=== PATIENT | female | born 1935 | race Caucasian/White ===

== ENCOUNTER → 2018-01-03 | Outpatient (CLI) | payer MEDICARE, OTHER ==
[~2018-01-03] MED LIST: ACYC800 PO; CHOL10002; FISH1000; HYDACE5 PO; LEVSOD100 PO; LEVSOD75 PO; Multiple Vitam1 EAC1 PO; NAPR220 PO; Pravastatin Sod40 MG PO; RXHYDACE PO
[2018-01-03 11:04] LABS: BASOPHILS ABSOLUTE AUTO 0.03 K/mm3 (0.00-0.23); BASOPHILS PERCENT AUTO 1 % (0-2); EOSINOPHILS ABSOLUTE AUTO 0.16 K/mm3 (0.00-0.68); EOSINOPHILS PERCENT AUTO 3 % (0-6); Hematocrit 35.2 % (33.0-51.0); Hemoglobin 11.6 g/dL (11.5-16.0); IMMATURE GRAN ABSOLUTE AUTO 0.01 K/mm3 (0.00-0.10); IMMATURE GRAN PERCENT AUTO 0 % (0-1); LYMPHOCYTES ABSOLUTE AUTO 1.32 K/mm3 (0.84-5.20); LYMPHOCYTES PERCENT AUTO 27 % (21-46); MONOCYTES ABSOLUTE AUTO 0.44 K/mm3 (0.16-1.47); MONOCYTES PERCENT AUTO 9 % (4-13); Mean Corpuscular HGB 28.6 pg (26.0-34.0); Mean Corpuscular Volume 87 fL (80-100); Mean Platelet Volume 11.1 fL (9.1-12.4); NEUTROPHILS ABSOLUTE AUTO 3.03 K/mm3 (1.96-9.15); NEUTROPHILS PERCENT AUTO 61 % (41-73); Platelet Count 158 K/mm3 (150-400); RDW Coefficient Variation 13.7 % (11.7-14.2); RDW Standard Deviation 43.5 fL (35.1-46.3); Red Blood Cell Count 4.05 M/mm3 (3.80-5.20); White Blood Cell Count 4.99 K/mm3 (4.00-11.30)
[2018-01-03 11:24] LABS: Alanine Aminotransfer (ALT/SGP 24 U/L (12-78); Albumin, Blood 3.3 g/dL (3.4-5.0); Albumin/Globulin Ratio 0.8 (0.8-1.8); Alk Phos 90 U/L (40-126); Anion Gap 8 mmol/L (6-16); Aspartate Aminotrans (AST/SGOT 14 U/L (12-37); Bilirubin, Total 0.6 mg/dL (0.1-1.0); Blood Urea Nitrogen 13 mg/dL (8-24); Bun/Creatinine Ratio 15.1 (12.0-20.0); CO2, Blood 29 mmol/L (21-32); CPK Creatine Kinase 107 U/L (26-192); Calcium, Blood 9.2 mg/dL (8.5-10.1); Chloride, Blood 106 mmol/L (98-108); Creatinine, Blood 0.86 mg/dL (0.40-1.00); Globulin, Blood 4.2 g/dL (2.2-4.0); Glomerular Filtration Rate >60 (60-); Glucose, Blood 149 mg/dL (70-99); Potassium, Blood 3.5 mmol/L (3.5-5.5); Sodium, Blood 143 mmol/L (136-145); Thyroid Stimulating Hormone 3.124 uIU/mL (0.360-4.800); Total Protein, Blood 7.5 g/dL (6.4-8.2)
[2018-01-03 11:25] LABS: Troponin I <0.017 ng/mL (0.000-0.040)
== END | disposition home or self-care (01) ==
LOC: LAB SHORT 11:00 → LAB EV 11:00
PROVIDERS: General Practice
DX: I50.9 Heart failure, unspecified (principal)
CPT/HCPCS: 80053; 82550; 83880; 84443; 84484; 85025

== ENCOUNTER → 2020-11-06 | Outpatient (CLI) | payer MEDICARE, OTHER ==
[~2020-11-06] MED LIST changes: +AMLO5 PO; +ATOR80 PO; +Acetaminophen325 M1 PO; +Aspirin EC81 MG PO; +CARV25 PO; +FURO20 PO; +LOSA25 PO; +Nitrostat0.3 MG SL; +POTA10T PO; -Pravastatin Sod40 MG PO; +Prinivil10 MG PO; +SPIR25 PO
== END | disposition home or self-care (01) ==
LOC: LAB SHORT 16:20
DX: N39.0 Urinary tract infection, site not specified (principal)
CPT/HCPCS: 87077; 87086; 87186

== ENCOUNTER → 2021-01-11 | Outpatient (CLI) | payer MEDICARE, OTHER | END | disposition home or self-care (01) | LOC: LAB 13:40 → LAB SHORT 13:40 | DX: R30.9 Painful micturition, unspecified (principal) | CPT/HCPCS: 87077; 87086; 87186 ==

== ENCOUNTER 2021-04-03 07:07 | Inpatient (IN) | payer MEDICARE, OTHER ==
[~2021-04-03] VITALS: Ht 160 cm; Wt 93.2 kg
[~2021-04-03 07:07] MED LIST changes: -AMLO5 PO; -Acetaminophen325 M1 PO; -Aspirin EC81 MG PO; -CARV25 PO; -FURO20 PO; -LOSA25 PO; -Nitrostat0.3 MG SL; -POTA10T PO; -Prinivil10 MG PO; -SPIR25 PO
[2021-04-03 07:55] LABS: BASOPHILS ABSOLUTE AUTO 0.02 K/mm3 (0.00-0.23); BASOPHILS PERCENT AUTO 1 % (0-2); EOSINOPHILS ABSOLUTE AUTO 0.13 K/mm3 (0.00-0.68); EOSINOPHILS PERCENT AUTO 3 % (0-6); Hematocrit 36.3 % (33.0-51.0); Hemoglobin 11.6 g/dL (11.5-16.0); IMMATURE GRAN ABSOLUTE AUTO 0.01 K/mm3 (0.00-0.10); IMMATURE GRAN PERCENT AUTO 0 % (0-1); LYMPHOCYTES ABSOLUTE AUTO 1.55 K/mm3 (0.84-5.20); LYMPHOCYTES PERCENT AUTO 38 % (21-46); MONOCYTES ABSOLUTE AUTO 0.36 K/mm3 (0.16-1.47); MONOCYTES PERCENT AUTO 9 % (4-13); Mean Corpuscular HGB 28.9 pg (26.0-34.0); Mean Corpuscular Volume 91 fL (80-100); Mean Platelet Volume 11.4 fL (9.1-12.4); NEUTROPHILS ABSOLUTE AUTO 1.97 K/mm3 (1.96-9.15); NEUTROPHILS PERCENT AUTO 49 % (41-73); Platelet Count 121 K/mm3 (150-400); RDW Coefficient Variation 14.1 % (11.7-14.2); RDW Standard Deviation 46.5 fL (35.1-46.3); Red Blood Cell Count 4.01 M/mm3 (3.80-5.20); White Blood Cell Count 4.04 K/mm3 (4.00-11.30)
[2021-04-03 08:19] LABS: Alanine Aminotransfer (ALT/SGP 37 U/L (12-78); Albumin, Blood 3.3 g/dL (3.4-5.0); Albumin/Globulin Ratio 0.8 (0.8-1.8); Alk Phos 82 U/L (50-136); Anion Gap 7 mmol/L (6-16); Aspartate Aminotrans (AST/SGOT 25 U/L (12-37); Bilirubin, Total 0.9 mg/dL (0.1-1.0); Blood Urea Nitrogen 14 mg/dL (8-24); Bun/Creatinine Ratio 16.2 (12.0-20.0); CO2, Blood 25 mmol/L (21-32); Calcium, Blood 8.8 mg/dL (8.5-10.1); Chloride, Blood 109 mmol/L (98-108); Creatinine, Blood 0.86 mg/dL (0.40-1.00); Glomerular Filtration Rate >60 (60-); Glucose, Blood 196 mg/dL (70-99); Potassium, Blood 3.4 mmol/L (3.5-5.5); Sodium, Blood 141 mmol/L (136-145); Total Protein, Blood 7.3 g/dL (6.4-8.2); Troponin I <0.015 ng/mL (0.000-0.040)
[2021-04-03 08:20] LABS: Chloride (POC) 104 mmol/L (98-108); Creatinine (POC) 0.8 mg/dL (0.6-1.0); Glucose (ISTAT POC) 179 mg/dL (70-99); Hemoglobin (POC) 11.6 g/dL (12.0-16.0); Potassium (POC) 3.4 mmol/L (3.5-5.5); Sodium (POC) 144 mmol/L (135-148); Total CO2 (POC) 27 mmol/L (21-32)
[2021-04-03 11:38] LABS: CHOL/HDL RATIO 2.9; Cholesterol 144 mg/dL (50-200); HDL Cholesterol 49 mg/dL (>39); LDL/HDL RATIO 1.1; Low Density Lipoprotein Chol 56 mg/dL (0-110); Triglycerides 194 mg/dL (30-160); Very Low Density Lipoprot Chol 38 mg/dL (6-32)
[2021-04-03 11:53] LABS: International Normalized Ratio 0.98; Prothrombin Time Results 10.6 Sec (9.7-11.5)
[2021-04-03] MEDS ORDERED: Aspirin EC81 MG PO (11:59)
[2021-04-03] MEDS ORDERED: LOSA25 PO (11:59)
--- NOTE | 2021-04-03 18:30 | NUR ---
PT IS A/O X4 AND INDEPENDENT IN ROOM. PT IS ON RA, DENIES CHEST PAIN OR SOB. PT IS ON TELE RUNNING SINUS RYTHYM. TOLERATING DIET, CONTINENT OF URINE AND STOOL. PT IS RECEIVING A HEPARIN DRIP, AND WILL BE NPO AFTER MIDNIGHT FOR AN ANGIOGRAM TOMORROW. SKIN IS INTACT. BP WAS ELEVATED NOW CONTROLLED WITH LISINIPRIL AND METOPROLOL. VSS
--- NOTE | 2021-04-04 04:26 | NUR ---
SHIFT SUMMARY PT HAD A DIFFICULT EVENING. IV LASIX GIVEN AT THE START OF THE SHIFT PER DR. VIDALES AND PT HAD A LARGE AMOUNT OF OUTPUT. FREQUENTLY UP, EVERY COUPLE MINUTES PER PT FOR SEVERAL HOURS. BSC PLACED AT BEDSIDE FOR EASIER VOIDING PT WAS VERY TIRED. AT APPROX 0200 PT FINALLY FELL ASLEEP. APPEARED TO SLEEP WELL THE REST OF THE EVENING. PT HAD NO COMPLAINTS OF PAIN INCLUDING CHEST PAIN. REPORTED SOME VERY MINIMAL SOB BUT STATED THAT WAS MUCH IMPROVED SINCE FIRST COMING TO ED. NITRO PATCH REMOVED PER DR. VIDALES. PT REMAINED ON RA WITH O2 SATS IN THE MID 90'S. NPO SINCE MIDNIGHT FOR PROCEDURE TODAY. HEPARIN DRIP INFUSING. RATE INCREASED THIS EVENING TO 15 UNITS/KG/HR OR 21 ML/HR. VITAL SIGNS STABLE. WILL CONTINUE TO MONITOR.
[2021-04-04 06:18] LABS: BASOPHILS ABSOLUTE AUTO 0.04 K/mm3 (0.00-0.23); BASOPHILS PERCENT AUTO 1 % (0-2); EOSINOPHILS ABSOLUTE AUTO 0.15 K/mm3 (0.00-0.68); EOSINOPHILS PERCENT AUTO 3 % (0-6); Hematocrit 34.9 % (33.0-51.0); Hemoglobin 11.3 g/dL (11.5-16.0); IMMATURE GRAN ABSOLUTE AUTO 0.02 K/mm3 (0.00-0.10); IMMATURE GRAN PERCENT AUTO 0 % (0-1); LYMPHOCYTES ABSOLUTE AUTO 1.76 K/mm3 (0.84-5.20); LYMPHOCYTES PERCENT AUTO 32 % (21-46); MONOCYTES ABSOLUTE AUTO 0.55 K/mm3 (0.16-1.47); MONOCYTES PERCENT AUTO 10 % (4-13); Mean Corpuscular HGB 29.2 pg (26.0-34.0); Mean Corpuscular HGB Conc 32.4 g/dL (31.5-36.5); Mean Corpuscular Volume 90 fL (80-100); Mean Platelet Volume 11.2 fL (9.1-12.4); NEUTROPHILS ABSOLUTE AUTO 2.91 K/mm3 (1.96-9.15); NEUTROPHILS PERCENT AUTO 54 % (41-73); Platelet Count 132 K/mm3 (150-400); RDW Coefficient Variation 14.5 % (11.7-14.2); RDW Standard Deviation 47.5 fL (35.1-46.3); Red Blood Cell Count 3.87 M/mm3 (3.80-5.20); White Blood Cell Count 5.43 K/mm3 (4.00-11.30)
[2021-04-04 06:36] LABS: Alanine Aminotransfer (ALT/SGP 35 U/L (12-78); Albumin, Blood 3.5 g/dL (3.4-5.0); Albumin/Globulin Ratio 0.9 (0.8-1.8); Alk Phos 79 U/L (50-136); Anion Gap 4 mmol/L (6-16); Aspartate Aminotrans (AST/SGOT 21 U/L (12-37); Blood Urea Nitrogen 18 mg/dL (8-24); Bun/Creatinine Ratio 19.8 (12.0-20.0); CO2, Blood 31 mmol/L (21-32); Calcium, Blood 9.1 mg/dL (8.5-10.1); Chloride, Blood 106 mmol/L (98-108); Creatinine, Blood 0.91 mg/dL (0.40-1.00); Glomerular Filtration Rate >60 (60-); Glucose, Blood 121 mg/dL (70-99); Potassium, Blood 3.6 mmol/L (3.5-5.5); Sodium, Blood 141 mmol/L (136-145); Total Protein, Blood 7.5 g/dL (6.4-8.2)
--- NOTE | 2021-04-04 09:59 | NUR ---
CALLED AND INFORMED DR DEY OF BLOOD IN URINE, THIS IS NEW. WILL REPORT THAT TO PCU WHEN BED ASSIGNED
--- NOTE | 2021-04-04 18:06 | NUR ---
SHIFT NOTE PT'S TR BAND HAS BEEN FULLY RECOVERED, NO ACTIVE BLEEDING NOTED FROM SITE. BOUNDING RADIAL PULSES NOTED. SKIN PWD, GOOD SENSATION REPORTED, FULL ROM. PT IS FORGETFUL, SHE IS EDUCATED THOROUGHLY ABOUT NEW MEDICATIONS SHE REPEATS TEACHING BACK, BUT WHEN THIS RN RETURNS FOR 1500 COREG DOSE PT HAS FORGOTTEN TEACHING THAT WAS PREVIOUSLY PROVIDED. PT OTHERWISE IS A/O X3. SBA TO BATHROOM. PT CALLS DAUGHTER ABLE TO RECALL NUMBER
[2021-04-05 04:19] LABS: Magnesium, Blood 2.1 mg/dL (1.6-2.4)
[2021-04-05 04:20] LABS: Anion Gap 4 mmol/L (6-16); Blood Urea Nitrogen 21 mg/dL (8-24); Bun/Creatinine Ratio 22.7 (12.0-20.0); CO2, Blood 31 mmol/L (21-32); Calcium, Blood 8.8 mg/dL (8.5-10.1); Chloride, Blood 105 mmol/L (98-108); Creatinine, Blood 0.93 mg/dL (0.40-1.00); Glomerular Filtration Rate >60 (60-); Glucose, Blood 114 mg/dL (70-99); Potassium, Blood 3.3 mmol/L (3.5-5.5); Sodium, Blood 140 mmol/L (136-145)
--- NOTE | 2021-04-05 04:28 | NUR ---
SHIFT SUMMARY ALERT AND ORIENTED X4. VSS. PATIENT WAS PLACED ON 2L O2 VIA NC DUE TO SLEEP APNEA. PATIENT RESTED WELL THROUGHOUT THE NIGHT. RIGHT RADIAL ANGIO ACCESS SITE WNL NO HEMATOMA NOTED, SITE C/D/I. NO ACUTE CHANGES OVER SHIFT. WILL CONTINUE TO MONITOR UNTIL END OF SHIFT.
[2021-04-05] MEDS ORDERED: Acetaminophen325 M1 PO (13:06)
[2021-04-05] MEDS ORDERED: AMLO5 PO (13:06)
[2021-04-05] MEDS ORDERED: CARV25 PO (13:07)
[2021-04-05] MEDS ORDERED: FURO20 PO (13:07)
[2021-04-05] MEDS ORDERED: Prinivil10 MG PO (13:08)
[2021-04-05] MEDS ORDERED: SPIR25 PO (13:10)
[2021-04-05] MEDS ORDERED: Nitrostat0.3 MG SL (13:10)
[2021-04-05] MEDS ORDERED: POTA10T PO (13:11)
--- NOTE | 2021-04-05 17:05 | NUR ---
DISCHARGE ORDERS RECEIVED; PT GIVEN HOME O2 EVALUATION BY RT; RECOMMENDATION FOR ROOM AIR UPON DISCHARGE WITH FOLLOW UP WITH PCP FOR CONTINUED EXERTIONAL DYSPNEA AND POSSIBLE OBSTRUCTIVE SLEEP APNEA; DISCHARGE TEACHING GIVEN AT BEDSIDE BY RN WITH PT AND HER DAUGHTER; [facility] D/C'ED AT 1552; PT AND HER DAUGHTER DENIED ADDITIONAL CONCERNS AT THIS TIME AND VERBALIZE TEACHING; PT DISCHARGED TO CARE OF HER DAUGHTER AT 1558 VIA WHEELCHAIR ACCOMPANIED BY RN WITH NO MONITORING, OXYGEN, OR IV THERAPY; PT TRANSFERRED TO PERSONAL VEHICLE AT 1604
--- NOTE | 2021-04-05 19:06 | NUR ---
Update 04/05/21 1903: Pt. D/C home. I scheduled her PET scan for 04/16/21 and her hospital F/U with PCP on 04/11/21. These dates and times were reviewed with daughter and patient. They are agreeable. Reviewed discharge plan, discharge letter, and contact phone numbers for [place]. I advised pt. to call if she has any questions or concerns. She stated her understanding. D/C home with daughter.
== END 2021-04-05 16:00 | disposition home or self-care (01) | DRG 287 ==
LOC: ER 07:07 → MEDS 07:08 → PCU 04-04 11:32
PROVIDERS: Emergency Medicine; Internal Medicine Cardiovascular Disease; Pharmacist; ADMIT Family Medicine
PROC: 4A023N7 Measurement of Cardiac Sampling and Pressure, Left Heart, Percutaneous Approach (ICD-10-PCS; principal; 2021-04-04)
PROC: B2111ZZ Fluoroscopy of Multiple Coronary Arteries using Low Osmolar Contrast (ICD-10-PCS; 2021-04-04)
PROC: 4A033BC Measurement of Arterial Pressure, Coronary, Percutaneous Approach (ICD-10-PCS; 2021-04-04)
PROC: B2151ZZ Fluoroscopy of Left Heart using Low Osmolar Contrast (ICD-10-PCS; 2021-04-04)
PROC: B245ZZ3 Ultrasonography of Left Heart, Intravascular (ICD-10-PCS; 2021-04-04)
DX: I11.0 Hypertensive heart disease with heart failure (principal); I50.43 Acute on chronic combined systolic (congestive) and diastolic (congestive) heart failure; Z66 Do not resuscitate; I42.8 Other cardiomyopathies; E03.9 Hypothyroidism, unspecified; I25.10 Atherosclerotic heart disease of native coronary artery without angina pectoris; J43.2 Centrilobular emphysema; E11.9 Type 2 diabetes mellitus without complications; E78.5 Hyperlipidemia, unspecified; I44.7 Left bundle-branch block, unspecified; Z96.641 Presence of right artificial hip joint; Z85.3 Personal history of malignant neoplasm of breast; Z90.12 Acquired absence of left breast and nipple; Z90.710 Acquired absence of both cervix and uterus; Z98.890 Other specified postprocedural states; Z87.01 Personal history of pneumonia (recurrent); Z91.011 Allergy to milk products; Z79.899 Other long term (current) drug therapy
CPT/HCPCS: 36415; 71045; 71260; 76937; 80047; 80048; 80053; 80061; 83036; 83735; 83880; 84443; 84484; 85014; 85025; 85347; 85379; 85610; 85730; 93005; 93010; 93306; 93458; 93571; 93572; 94761; 94762; 96374-59; 96375; 96375-59; 96376; 99152; 99153; 99285-25; A9270; C1769; C1887; C1894; G0378; J1644; J1940; J2250; J3010; J7030; J7050; Q9967

== ENCOUNTER → 2022-02-17 | Outpatient (CLI) | payer MEDICARE, OTHER ==
[~2022-02-17] MED LIST changes: +AMLO5 PO; +AMOCLA875 PO; +Acetaminophen325 M1 PO; +Aspirin EC81 MG PO; +CARV25 PO; +FURO20 PO; +Flonase 0.05% N16 GM; +GLIP5 PO; +LOSA25 PO; +METF500C PO; +Nitrostat0.3 MG SL; +POTA10T PO; +Prinivil10 MG PO; +SPIR25 PO
[2022-02-17 11:46] LABS: BASOPHILS ABSOLUTE AUTO 0.03 K/mm3 (0.00-0.23); BASOPHILS PERCENT AUTO 1 % (0-2); EOSINOPHILS ABSOLUTE AUTO 0.08 K/mm3 (0.00-0.68); EOSINOPHILS PERCENT AUTO 1 % (0-6); Hematocrit 37.8 % (33.0-51.0); Hemoglobin 12.9 g/dL (11.5-16.0); IMMATURE GRAN ABSOLUTE AUTO 0.04 K/mm3 (0.00-0.10); IMMATURE GRAN PERCENT AUTO 1 % (0-1); LYMPHOCYTES ABSOLUTE AUTO 1.36 K/mm3 (0.84-5.20); LYMPHOCYTES PERCENT AUTO 21 % (21-46); MONOCYTES ABSOLUTE AUTO 0.46 K/mm3 (0.16-1.47); MONOCYTES PERCENT AUTO 7 % (4-13); Mean Corpuscular HGB 31.7 pg (26.0-34.0); Mean Corpuscular HGB Conc 34.1 g/dL (31.5-36.5); Mean Corpuscular Volume 93 fL (80-100); Mean Platelet Volume 12.2 fL (9.1-12.4); NEUTROPHILS ABSOLUTE AUTO 4.64 K/mm3 (1.96-9.15); NEUTROPHILS PERCENT AUTO 70 % (41-73); Platelet Count 180 K/mm3 (150-400); RDW Coefficient Variation 13.5 % (11.7-14.2); RDW Standard Deviation 45.1 fL (35.1-46.3); Red Blood Cell Count 4.07 M/mm3 (3.80-5.20); White Blood Cell Count 6.61 K/mm3 (4.00-11.30)
[2022-02-17 12:02] LABS: Albumin, Blood 3.8 g/dL (3.4-5.0); Albumin/Globulin Ratio 0.9 (0.8-1.8); Bun/Creatinine Ratio 14.4 (12.0-20.0); Calcium, Blood 9.3 mg/dL (8.5-10.1); Creatinine, Blood 1.25 mg/dL (0.40-1.00); Globulin, Blood 4.1 g/dL (2.2-4.0); Potassium, Blood 4.2 mmol/L (3.5-5.5); Total Protein, Blood 7.9 g/dL (6.4-8.2)
[2022-02-17 14:38] LABS: Candida species (DNA Probe) Positive (NEGATIVE); G. vaginalis (DNA Probe) Positive (NEGATIVE); T. vaginalis (DNA Probe) Negative (NEGATIVE)
== END ==
LOC: LAB SHORT 11:34 → LAB 11:34
PROVIDERS: Physician Assistant
DX: R73.9 Hyperglycemia, unspecified (principal); R30.9 Painful micturition, unspecified
CPT/HCPCS: 80053; 83036; 85025; 87077; 87086; 87186; 87480; 87510; 87660

== ENCOUNTER 2022-05-31 21:04 | Inpatient (IN) | payer MEDICARE, OTHER ==
[~2022-05-31] VITALS: Ht 165.1 cm; Wt 98.7 kg
[~2022-05-31 21:04] MED LIST changes: -AMOCLA875 PO; -Flonase 0.05% N16 GM; -GLIP5 PO; -METF500C PO
[2022-05-31 21:39] LABS: Hematocrit 31.3 % (33.0-51.0); Hemoglobin 10.2 g/dL (11.5-16.0); Mean Corpuscular HGB 30.7 pg (26.0-34.0); Mean Corpuscular HGB Conc 32.6 g/dL (31.5-36.5); Mean Corpuscular Volume 94 fL (80-100); Mean Platelet Volume 12.1 fL (9.1-12.4); NRBC ABSOLUTE 0.03 K/mm3 (0.00-0.02); NRBC Auto 0.2 /100 WBC (0.0-0.2); Platelet Count 114 K/mm3 (150-400); RDW Coefficient Variation 14.1 % (11.7-14.2); Red Blood Cell Count 3.32 M/mm3 (3.80-5.20); White Blood Cell Count 16.32 K/mm3 (4.00-11.30)
[2022-05-31 21:49] LABS: Source, Urine Straight Cath
[2022-05-31 21:54] LABS: Albumin, Blood 2.7 g/dL (3.4-5.0); Albumin/Globulin Ratio 0.8 (0.8-1.8); Bilirubin, Total 0.9 mg/dL (0.1-1.0); Bun/Creatinine Ratio 13.2 (12.0-20.0); Calcium, Blood 8.4 mg/dL (8.5-10.1); Creatinine, Blood 2.34 mg/dL (0.40-1.00); Globulin, Blood 3.4 g/dL (2.2-4.0); Potassium, Blood 4.3 mmol/L (3.5-5.5); Total Protein, Blood 6.1 g/dL (6.4-8.2)
[2022-05-31 22:06] LABS: Blood, Urine 2+ (Neg); Glucose Qualitative, Urine Neg (Neg); Ketones, Urine 1+ (Neg); Leukocyte Esterase, Urine 3+ (Neg); Nitrite, Urine Neg (Neg); Protein, Urine 2+ (Neg); Specific Gravity, Urine 1.025 (1.003-1.022); Urobilinogen, Urine 2+ (Normal)
[2022-05-31 22:09] LABS: BAND PERCENT MAN 50 % (0-8); BASOPHILS PERCENT MAN 0 % (0-2); EOSINOPHILS PERCENT MAN 0 % (0-6); LYMPHOCYTES ABSOLUTE MAN 0.32 K/mm3 (0.84-5.20); LYMPHOCYTES PERCENT MAN 2 % (21-46); METAMYELOCYTE ABSOLUTE MAN 0.16 K/mm3 (0.00-0.00); METAMYELOCYTE PERCENT MAN 1 % (0-0); MONOCYTES ABSOLUTE MAN 0.65 K/mm3 (0.16-1.47); MONOCYTES PERCENT MAN 4 % (4-13); NEUTROPHILS ABSOLUTE MAN 15.17 K/mm3 (1.96-9.15); SEG NEUTROPHILS PERCENT MAN 43 % (41-73); TOTAL CELLS COUNTED 100
[2022-05-31 22:23] LABS: Influenza A, PCR NEGATIVE (NEGATIVE); Influenza B, PCR NEGATIVE (NEGATIVE); Resp Syncytial Virus, PCR NEGATIVE (NEGATIVE); SARS-Cov-2 (COVID-19) PCR, MMC NEGATIVE (NEGATIVE)
[2022-05-31 22:29] LABS: Appearance, Urine Cloudy (Clear); Bilirubin, Urine 2+ (Neg); Color, Urine Amber (P-Yellow)
[2022-05-31 22:30] LABS: Bacteria Many /hpf; Squamous Epithelial Cells Few /hpf (Few); White Blood Cells, Urine TNTC /hpf (0-5)
[2022-06-01 03:55] LABS: Hematocrit 31.3 % (33.0-51.0); Mean Corpuscular HGB 30.3 pg (26.0-34.0); Mean Corpuscular HGB Conc 31.9 g/dL (31.5-36.5); Mean Corpuscular Volume 95 fL (80-100); Mean Platelet Volume 11.9 fL (9.1-12.4); Platelet Count 106 K/mm3 (150-400); RDW Coefficient Variation 14.3 % (11.7-14.2); RDW Standard Deviation 49.5 fL (35.1-46.3); White Blood Cell Count 16.66 K/mm3 (4.00-11.30)
[2022-06-01 04:02] LABS: Source, Urine Foley catheter
[2022-06-01 04:03] LABS: Bilirubin, Urine Neg (Neg); Blood, Urine 5+ (Neg); Glucose Qualitative, Urine Neg (Neg); Ketones, Urine 1+ (Neg); Leukocyte Esterase, Urine 3+ (Neg); Nitrite, Urine Pos (Neg); Protein, Urine 3+ (Neg); Specific Gravity, Urine 1.015 (1.003-1.022); Urobilinogen, Urine NORM (Normal)
[2022-06-01 04:10] LABS: Bun/Creatinine Ratio 15.7 (12.0-20.0); Calcium, Blood 7.8 mg/dL (8.5-10.1); Creatinine, Blood 2.23 mg/dL (0.40-1.00); Potassium, Blood 5.2 mmol/L (3.5-5.5)
[2022-06-01 04:13] LABS: Appearance, Urine Turbid (Clear); Color, Urine Yellow (P-Yellow)
[2022-06-01 04:14] LABS: Bacteria Many /hpf; Squamous Epithelial Cells Not Seen /hpf (Few); White Blood Cells, Urine TNTC /hpf (0-5)
--- NOTE | 2022-06-01 05:19 | NUR ---
ARRIVAL TO ICU PT ARRIVED TO ICU 10 AT 0255 VIA ED BED AND TRANSFERED OVER TO ICU BED WITH SLIDE SHEET. PT IS ALERT/ORIENTED X4 BUT [place] AND RESTLESS, CHALLENGING TO GET COMFORTABLE; PT WAS REMINDED SEVERAL TIMES TO NOT TOUCH CENTRAL LINE TO RT IJ; PT IS REDIRECTABLE; GENERALIZED WEAKNESS NOTED. AFEBRILE. SPO2 >95% ON RA. HR 80'S. SBP 90-120'S; PT ARRIVED WITH LEVOPHED INFUSING AT 30MCG/MIN AND WAS ABLE TO TITRATE DOWN, LEVOPHED INFUSING NOW AT 8MCG/MIN; VASOPRESSIN ALSO INFUSING AT 0.04UNITS/MIN. ATTENDS IN PLACE AND WAITING FOR STOOL SAMPLE. TEMP JOHNSON PLACED SHORTLY AFTER ARRIVAL TO ICU; UA SENT; URINE CLOUDY AND YELLOW/WHITE. CENTRAL LINE TO RT IJ DRESSING C/D/I. SEE ADMISSION ASSESSMENT FOR FULL ASSESSMENT.
--- NOTE | 2022-06-01 07:19 | NUR ---
END OF SHIFT SUMMARY NO CHANGES SINCE ADMISSION TO THE UNIT. NO CHANGES IN NEUOR STATUS. SPO2 >95% ON RA. HR 80-90'S; LEVOPHED TITRATED DOWN TO 5MCG/MIN; VASOPRESSIN INFUSING. WAITING FOR STOOL SAMPLE. JOHNSON IN PLACE AND DRAINING TO GRAVITY. REPORT GIVEN TO AM RN.
--- NOTE | 2022-06-01 09:00 | NUR ---
INITIAL ASSESSMENT PATIENT [place]; HEARING AIDES AT HOME. PATIENT ALERT AND ORIENTED X 4, AFEBRILE. NO COMPLAINTS OF PAIN. PATIENT IRRITABLE BECAUSE CANNOT GO TO TOILET IS ON LEVOPHED FOR HYPOTENSION. PATIENT SATTING 90% AND GREATER ON RA. LUNGS CLEAR. PATIENT IN SR, HR 70S TO 80S. SBP 70S TO 1-TEENS. PATIENT CLEANED UP AFTER MEDIUM, BROWN, SOFT STOOL THIS AM. STOOL SAMPLE SENT TO LAB. JOHNSON DRAINING ORANGE, CLOUDY URINE. REDDENED LAURA AREA NOTED, OTHERWISE SKIN APPEARS C/D/I. LEVOPHED AT 7 MCG/ MINUTE AND VASOPRESSIN ON SB. BED LOW, CALL LIGHT IN REACH. WILL CONTINUE TO MONITOR PATIENT FREQUENTLY THROUGHOUT SHIFT.
[2022-06-01 10:26] LABS: Adenovirus F 40/41 Not Detected (NOT DETECT); Astrovirus Not Detected (NOT DETECT); Campylobacter Sp Not Detected (NOT DETECT); Cryptosporidium Not Detected (NOT DETECT); Cyclospora Cayetanensis Not Detected (NOT DETECT); E. Coli O157 Not Detected (NOT DETECT); Entamoeba Histolytica Not Detected (NOT DETECT); Enteroaggregative E. coli-EAEC Not Detected (NOT DETECT); Enteropathogenic E. coli-EPEC Not Detected (NOT DETECT); Enterotoxigenic E. coli-ETEC Not Detected (NOT DETECT); Giardia Lamblia Not Detected (NOT DETECT); Norovirus GI/GII Not Detected (NOT DETECT); Plesiomonas Shigelloides Not Detected (NOT DETECT); Rotavirus A Not Detected (NOT DETECT); Salmonella Sp Not Detected (NOT DETECT); Sapovirus Not Detected (NOT DETECT); Shiga Toxin-prod E. coli-STEC Not Detected (NOT DETECT); Shigella/Enteroin E. coli-EIEC Not Detected (NOT DETECT); Vibrio Cholerae Not Detected (NOT DETECT); Vibrio Sp Not Detected (NOT DETECT); Yersinia Enterocolitica Not Detected (NOT DETECT)
--- NOTE | 2022-06-01 12:28 | NUR ---
PATIENT AFEBRILE. NO COMPLAINTS OF PAIN. HR 70S TO 80S. SBP IN THE LOW 100S. LEVOPHED AT 6 MCG/ MINUTE AND VASOPRESSIN ON SB. BLOOD SUGAR 131; NO COVERAGE INDICATED. NO OTHER ACUTE CHANGES TO NOTE ON AT THIS TIME. SON AT CHAIR SIDE. PATIENT EATING LUNCH IN CHAIR. CALL LIGHT IN REACH. WILL CONTINUE TO MONITOR.
--- NOTE | 2022-06-01 16:30 | NUR ---
PATIENT AFEBRILE. HR 70S TO 90S. SBP 90S TO LOW 100S. LEVOPHED AT 4 MCG/ MINUTE. BLOOD SUGAR 124; COVERAGE NOT INDICATED. PATIENT RECEIVED COMPLETE BED BATH. NO OTHER ACUTE CHANGES TO NOTE ON AT THIS TIME.
--- NOTE | 2022-06-01 18:40 | NUR ---
SHIFT SUMMARY PATIENT NAPPED ON AND OFF THROUGHOUT SHIFT. PATIENT REMAINED ALERT AND ORIENTED X 4, AFEBRILE. PATIENT REMAINED CALM AND COOPERATIVE. PATIENT IRRITABLE AT BEGINNING OF SHIFT BECAUSE SHE WANTED TO STAND UP OUT OF BED AND WALK TO TOILET, HOWEVER IS ON LEVOPHED FOR HYPOTENSION. PATIENT LUMMI; HEARING AIDES AT HOME PER PATIENT. PATIENT GIVEN PRN TYLENOL AND LIDOCAINE PATCHES PLACED ON FEET FOR NERVE DISCOMFORT. PATIENT WEAK BUT ABLE TO ASSIST WITH REPOSITIONING. PATIENT REMAINED SATTING 90% AND GREATER ON RA. PATIENT REMAINED IN SR, HR 70S TO 90S. SBP 70S TO 1-TEENS. LEVOPHED RANGED FROM 4 TO 7 MCG/ MINUTE AND IS CURRENTLY AT 5 MCG/ MINUTE. VASOPRESSIN PLACED ON SB AT BEGINNING OF SHIFT. STOOL SENT TO LAB THIS SHIFT; GI PANEL NEGATIVE. PATIENT PLACED ON CARDIAC/ LOW CARB DIET THIS SHIFT AND IS TOLERATING WELL. PATIENT HAD SOFT, BROWN BM THIS SHIFT. BLOOD SUGARS 120S TO 130S; NO COVERAGE INDICATED THIS SHIFT. JOHNSON DRAINED 600 MLS OF ORANGE, CLOUDY URINE. NO CHANGES TO SKIN NOTED. PATIENT REPOSITIONED THROUGHOUT SHIFT. POSITIVE BLOOD CULTURES CAME BACK GRAM NEGATIVE BACILLI. ROCEPHIN DC'D. CEFEPIME STARTED. UP TO CHAIR WITH LIFT THIS SHIFT. PATIENT HAD COMPLETE BED BATH. NO COMPLAINTS AT THIS TIME. BED LOW, CALL LIGHT IN REACH. REPORT WILL BE GIVEN TO ASSUMING FLORIST SUPPLIES SALESPERSON NURSE SHORTLY.
--- NOTE | 2022-06-01 20:38 | NUR ---
ASSUMED CARE AT 1900 PT LAYING IN BED SLEEPING WHEN ARRIVED TO SHIFT. PT IS ALERT/ORIENTED X4 AND ABLE TO MAKE HER NEEDS KNOWN. GENERALIZED WEAKNESS NOTED. PT STATES THAT THE LIDOCAINE PATCHES ON BILATERAL FEET ARE HELPFUL. SPO2 >95% ON RA. HR 70-80'S. SBP 100'S; MAP 65; LEVOPHED TITRATED UP TO 7MCG/MIN FROM 5MCG/MIN. JOHNSON IN PLACE AND DRAINING TO GRAVITY. SEE SHIFT ASSESSMENT FOR FULL ASSESSMENT. PT SON AND VISITED FOR 15 MINUTES; BOTH PLEASENT AND INTERACTED WITH PT VERY WELL.
[2022-06-02 04:41] LABS: Hematocrit 31.6 % (33.0-51.0); Hemoglobin 10.4 g/dL (11.5-16.0); Mean Corpuscular HGB 30.7 pg (26.0-34.0); Mean Corpuscular HGB Conc 32.9 g/dL (31.5-36.5); Mean Corpuscular Volume 93 fL (80-100); Mean Platelet Volume 11.9 fL (9.1-12.4); Platelet Count 105 K/mm3 (150-400); RDW Coefficient Variation 14.1 % (11.7-14.2); RDW Standard Deviation 47.6 fL (35.1-46.3); Red Blood Cell Count 3.39 M/mm3 (3.80-5.20); White Blood Cell Count 17.67 K/mm3 (4.00-11.30)
[2022-06-02 05:07] LABS: Albumin, Blood 2.3 g/dL (3.4-5.0); Albumin/Globulin Ratio 0.6 (0.8-1.8); Bilirubin, Total 1.3 mg/dL (0.1-1.0); Bun/Creatinine Ratio 24.1 (12.0-20.0); Calcium, Blood 8.3 mg/dL (8.5-10.1); Creatinine, Blood 1.62 mg/dL (0.40-1.00); Globulin, Blood 3.9 g/dL (2.2-4.0); Potassium, Blood 3.8 mmol/L (3.5-5.5); Total Protein, Blood 6.2 g/dL (6.4-8.2)
[2022-06-02 05:45] LABS: BAND PERCENT MAN 28 % (0-8); BASOPHILS PERCENT MAN 0 % (0-2); EOSINOPHILS PERCENT MAN 0 % (0-6); LYMPHOCYTES ABSOLUTE MAN 0.35 K/mm3 (0.84-5.20); LYMPHOCYTES PERCENT MAN 2 % (21-46); METAMYELOCYTE ABSOLUTE MAN 0.17 K/mm3 (0.00-0.00); METAMYELOCYTE PERCENT MAN 1 % (0-0); MONOCYTES PERCENT MAN 0 % (4-13); MYELOCYTE ABSOLUTE MAN 0.35 K/mm3 (0.00-0.00); MYELOCYTE PERCENT MAN 2 % (0-0); NEUTROPHILS ABSOLUTE MAN 16.78 K/mm3 (1.96-9.15); SEG NEUTROPHILS PERCENT MAN 67 % (41-73); TOTAL CELLS COUNTED 100
--- NOTE | 2022-06-02 05:49 | NUR ---
END OF SHIFT SUMMARY NO ACUTE EVENTS OVERNIGHT. PT SLEPT ON AND OFF THROUGHOUT THE SHIFT. PT IS ALERT/ORIENTED X4 AND ABLE TO MAKE HER NEEDS KNOWN. AFEBRILE. SPO2 >95% ON RA. HR 80'S. SBP 100-130; MAP >65; LEVOPHED INFUSING AT 3MCG/MIN. JOHNSON IN PLACE WITH 1700ML URINE OUTPUT. CENTRAL LINE TO RT IJ DRESSING C/D/I. WILL REPORT TO AM RN WHEN AVAILABLE.
--- NOTE | 2022-06-02 08:45 | NUR ---
INITIAL ASSESSMENT PATIENT [place]; HEARING AIDES AT HOME. PATIENT ALERT AND ORIENTED X 4. PATIENT WEAK BUT ABLE TO MOVE ALL EXTREMITIES. PATIENT HAS TEMP PROBE JOHNSON READING 99.7 DEGREES FAHRENHEIT THIS AM. PATIENT STATES THAT LIDOCAINE PATCHES TO FEET HAVE BEEN HELPING WITH N/T DISCOMFORT. PATIENT 1 PERSON ASSIST TO BSC. PATIENT SATTING 90% AND GREATER ON RA. LUNGS CLEAR. PATIENT IN SR, HR 80S TO 90S. SBP 90S TO 120S. LAST BM YESTERDAY. PATIENT ON CARDIAC/ LOW CARB DIET. JOHNSON DRAINING YELLOW, CLOUDY, SEDIMENT URINE. LAURA AREA REDDENED, OTHERWISE SKIN APPEARS C.D.I. LEVOPHED INFUSING AT 1 MCG/ MINUTE, VASOPRESSIN OFF. BLOOD SUGAR 133 THIS AM; NO COVERAGE INDICATED. BED LOW, CALL LIGHT IN REACH. WILL CONTINUE TO MONITOR THROUGHOUT SHIFT.
--- NOTE | 2022-06-02 08:55 | NUR ---
DR. GOINS UPDATED ON PATIENT STATUS. INFORMED THAT WBCS INCREASING AND THAT PATIENT HAD TMAX OF 99.6 DEGREES FAHRENHEIT LAST NIGHT. INFORMED THAT LIDOCAINE PATCHES ORDERED YESTERDAY FOR FEET AND THAT PATIENT REPORTS RELIEF WITH. INFORMED THAT LEVOPHED CURRENTLY AT 1 MCG/ MINUTE. NO ORDERS RECEIVED AT THIS TIME.
[2022-06-02] MEDS ORDERED: METF500C PO (10:32)
[2022-06-02] MEDS ORDERED: GLIP5 PO (10:33)
--- NOTE | 2022-06-02 12:16 | NUR ---
PATIENT HAS TEMP OF 99.3 DEGREES FAHRENHEIT. PATIENT HAS BEEN NAPPING ON AND OFF. NO COMPLAINTS. HR 70S TO 80S. SBP LOW 100S TO 1-TEENS. LEVOPHED PLACED ON SB. BLOOD SUGAR OF 129; NO COVERAGE NEEDED. NO OTHER ACUTE CHANGES TO NOTE ON AT THIS TIME. WILL CONTINUE TO MONITOR.
--- NOTE | 2022-06-02 16:27 | NUR ---
DR. GOINS INFORMED THAT E.COLI IN URINE CULTURE. NO ORDER RECEIVED.
--- NOTE | 2022-06-02 16:45 | NUR ---
PATIENT HAS TEMP OF 99.9 DEGREES FAHRENHEIT. HR IN THE 80S. SBP IN THE 120S. BLOOD SUGAR 113; NO COVERAGE INDICATED. ELIZABETH MCINTYRE. NO OTHER ACUTE CHANGES TO NOTE ON AT THIS TIME. NO COMPLAINTS. SON VISITING. WILL CONTINUE TO MONITOR.
--- NOTE | 2022-06-02 18:55 | NUR ---
SHIFT SUMMARY PATIENT NAPPED ON AND OFF THROUGHOUT SHIFT. PATIENT REMAINED ALERT AND ORIENTED X 4. PATIENT HAD TMAX OF 99.8 DEGREES FAHRENHEIT. PATIENT 1 PERSON ASSIST TO BSC OR CHAIR. PATIENT REMAINED SATTING 90% AND GREATER ON RA. PATIENT REMAINED IN SR, HR 70S TO 90S. SBP 90S TO 120S. LEVOPHED HAS BEEN OFF SINCE AROUND NOON. NO BM THIS SHIFT. TOLERATING DIET WELL. 1100 MLS OUT FROM JOHNSON. JOHNSON REMOVED THIS SHIFT; NO VOID SINCE. NO CHANGES TO SKIN NOTED. PATIENT ABLE TO REPOSITION SELF IN BED WITH REMINDERS. VIT B COMPLEX STARTED THIS SHIFT FOR N/T TO FEET. ECHO PERFORMED THIS SHIFT. PATIENT REFUSED BED BATH. BLOOD SUGARS IN LOW 100S; NO COVERAGE INDICATED. PATIENT APPEARS COMFORTABLE AT THIS TIME. BED LOW, CALL LIGHT IN REACH. REPORT HAS BEEN GIVEN TO ASSUMING KITCHEN WORK SUPERVISOR NURSE.
--- NOTE | 2022-06-02 20:02 | NUR ---
ASSUMED CARE OF PT, REPORT RECEIVED. PT IS RESTING QUIETLY RECLINING IN BED WITH CALL LIGHT IN REACH, SHE DENIES NEEDS AT THIS TIME, DISCUSSED PLAN OF CARE FOR THIS SHIFT, PT DENIES QUESTIONS AT THIS TIME. WILL CONT TO MONITOR.
[2022-06-03 04:27] LABS: BASOPHILS ABSOLUTE AUTO 0.06 K/mm3 (0.00-0.23); BASOPHILS PERCENT AUTO 0 % (0-2); Hemoglobin 9.9 g/dL (11.5-16.0); LYMPHOCYTES ABSOLUTE AUTO 0.87 K/mm3 (0.84-5.20); LYMPHOCYTES PERCENT AUTO 6 % (21-46); MONOCYTES ABSOLUTE AUTO 0.54 K/mm3 (0.16-1.47); MONOCYTES PERCENT AUTO 3 % (4-13); Mean Corpuscular HGB 30.6 pg (26.0-34.0); Mean Corpuscular Volume 93 fL (80-100); Mean Platelet Volume 12.6 fL (9.1-12.4); Platelet Count 106 K/mm3 (150-400); RDW Coefficient Variation 14.1 % (11.7-14.2); RDW Standard Deviation 48.2 fL (35.1-46.3); Red Blood Cell Count 3.24 M/mm3 (3.80-5.20); White Blood Cell Count 15.79 K/mm3 (4.00-11.30)
[2022-06-03 04:30] LABS: EOSINOPHILS ABSOLUTE AUTO 0.18 K/mm3 (0.00-0.68); EOSINOPHILS PERCENT AUTO 1 % (0-6); IMMATURE GRAN ABSOLUTE AUTO 0.07 K/mm3 (0.00-0.10); IMMATURE GRAN PERCENT AUTO 0 % (0-1); NEUTROPHILS ABSOLUTE AUTO 14.07 K/mm3 (1.96-9.15); NEUTROPHILS PERCENT AUTO 89 % (41-73)
[2022-06-03 04:39] LABS: Albumin, Blood 2.2 g/dL (3.4-5.0); Albumin/Globulin Ratio 0.5 (0.8-1.8); Bilirubin, Total 0.7 mg/dL (0.1-1.0); Bun/Creatinine Ratio 25.4 (12.0-20.0); Calcium, Blood 8.6 mg/dL (8.5-10.1); Creatinine, Blood 1.42 mg/dL (0.40-1.00); Globulin, Blood 4.2 g/dL (2.2-4.0); Potassium, Blood 3.7 mmol/L (3.5-5.5); Total Protein, Blood 6.4 g/dL (6.4-8.2)
--- NOTE | 2022-06-03 05:47 | NUR ---
PT RESTS QUIETLY THROUGHOUT NOC, DID HAVE DIFFICULTY SLEEPING PRIOR TO 0100 THIS AM DUE TO NEUROPATHY TO BILAT FEET. SHE STATES THAT SHE NORMALLY TAKES ALEVE FOR THIS AT HOME WITH GOOD RESULTS. THE LIDOCAINE TOPICAL PATCHES THAT SHE HAD ON AT BEGINNING OF SHIFT WORKED WELL FOR HER WELL HOWEVER WERE DUE TO BE REMOVED AT HS, DISCUSSED POTENTIAL TO HAVE LIDOCAINE PATCHES PLACED AT HS AND OFF THROUGHOUT DAY A POTENTIAL OPTION TO CONTROL NEUROPATHY ALLOWING FOR SLEEP. PT CONTINUES IN SINUS RHYTHM THROUGHOUT NOC, INTERMITTENT IRREGULAR RHYTHM IS NOTED SECONDARY TO SINUS ARRHYTHMIA, PREMATURE PACS AND OCCASIONAL PVCS, PT REPORTS THAT SHE HAS HAD IRREGULAR HEART BEAT FOR "A LOT OF YEARS" PRESSURES HAVE MAINTAINED THROUGHOUT NOC. SATS MAINTAIN ON ROOM AIR, LUNGS REMAIN CLEAR THROUGHOUT. PT CONTINUES TO TOLERATE UP TO BSC FOR VOIDS WITH SBA, DENIES DIZZINESS/VERTIGO WITH UP OOB. CENTRAL LINE CONTINUES TO RIGHT IJ, SITE WNL, DRESSING CDI.
--- NOTE | 2022-06-03 07:45 | NUR ---
CARE OF PT ASSUMED AT 0700. PT AWAKE, ALERT, DENIES C/O PAIN. VSS. PLAN TO DC RIGHT IJ CENTRAL LINE AND PLACE POWERGLIDE FOR ACCESS. OOB TO CAHIR TOLERATED. PT REQUEST THAT LIDOCAINE PATCHES FOR FEET BE CHANGED TO HS THIS IS WHEN HER FEET HURT THE WORST.
[2022-06-03 20:34] LABS: PCO2 Arterial 33.3 mmHg (35-45); PO2 Arterial 70.5 mmHg (80-100); pH Blood Arterial 7.46 (7.35-7.45)
--- NOTE | 2022-06-04 04:18 | NUR ---
SHIFT SUMMARY ADMITTED FOR SEPTIC SHOCK/UTI. DNR CODE. 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 POWERGLIDE NOT PATENT, REMOVED THIS SHIFT. ACHS CHEMSTICKS. CARDIAC DIET. TELEMETRY IN PLACE: NSR @ 79 BPM. 1 ASSIST W/FWW - BRP. RECENT HX OF LUNG CANCER, UNKNOWN OUTPT TREATMENT. IV ANTIB RX ARE SCHEDULED. SHE IS A&O X4
[2022-06-04 05:19] LABS: BASOPHILS ABSOLUTE AUTO 0.04 K/mm3 (0.00-0.23); BASOPHILS PERCENT AUTO 0 % (0-2); EOSINOPHILS ABSOLUTE AUTO 0.21 K/mm3 (0.00-0.68); EOSINOPHILS PERCENT AUTO 2 % (0-6); Hemoglobin 9.8 g/dL (11.5-16.0); IMMATURE GRAN ABSOLUTE AUTO 0.06 K/mm3 (0.00-0.10); IMMATURE GRAN PERCENT AUTO 1 % (0-1); LYMPHOCYTES ABSOLUTE AUTO 0.92 K/mm3 (0.84-5.20); LYMPHOCYTES PERCENT AUTO 10 % (21-46); MONOCYTES PERCENT AUTO 9 % (4-13); Mean Corpuscular HGB Conc 32.7 g/dL (31.5-36.5); Mean Corpuscular Volume 92 fL (80-100); Mean Platelet Volume 11.8 fL (9.1-12.4); NEUTROPHILS ABSOLUTE AUTO 7.07 K/mm3 (1.96-9.15); NEUTROPHILS PERCENT AUTO 78 % (41-73); Platelet Count 107 K/mm3 (150-400); RDW Coefficient Variation 14.6 % (11.7-14.2); RDW Standard Deviation 49.3 fL (35.1-46.3); Red Blood Cell Count 3.27 M/mm3 (3.80-5.20)
[2022-06-04 05:44] LABS: Albumin, Blood 2.1 g/dL (3.4-5.0); Albumin/Globulin Ratio 0.5 (0.8-1.8); Bilirubin, Total 0.6 mg/dL (0.1-1.0); Bun/Creatinine Ratio 25.4 (12.0-20.0); Calcium, Blood 8.9 mg/dL (8.5-10.1); Creatinine, Blood 1.3 mg/dL (0.40-1.00); Globulin, Blood 4.5 g/dL (2.2-4.0); Potassium, Blood 3.5 mmol/L (3.5-5.5); Total Protein, Blood 6.6 g/dL (6.4-8.2)
[2022-06-04] MEDS ORDERED: AMOCLA875 PO (11:33)
[2022-06-04] MEDS ORDERED: Flonase 0.05% N16 GM (11:33)
== END 2022-06-04 12:44 | disposition home or self-care (01) | DRG 871 ==
LOC: ER 21:04 → ICUW 06-01 01:49 → MEDS 06-03 19:07
PROVIDERS: Emergency Medicine; Family Medicine; Internal Medicine Critical Care Medicine; ADMIT Internal Medicine
PROC: 02HV33Z Insertion of Infusion Device into Superior Vena Cava, Percutaneous Approach (ICD-10-PCS; principal; 2022-06-01)
PROC: B548ZZA Ultrasonography of Superior Vena Cava, Guidance (ICD-10-PCS; 2022-06-01)
PROC: 3E033XZ Introduction of Vasopressor into Peripheral Vein, Percutaneous Approach (ICD-10-PCS; 2022-06-01)
PROC: 3E03329 Introduction of Other Anti-infective into Peripheral Vein, Percutaneous Approach (ICD-10-PCS; 2022-06-01)
DX: A41.51 Sepsis due to Escherichia coli [E. coli] (principal); G92.8 Other toxic encephalopathy; R65.21 Severe sepsis with septic shock; I50.43 Acute on chronic combined systolic (congestive) and diastolic (congestive) heart failure; N17.9 Acute kidney failure, unspecified; N39.0 Urinary tract infection, site not specified; Z66 Do not resuscitate; Z20.822 Contact with and (suspected) exposure to COVID-19; I11.0 Hypertensive heart disease with heart failure; E11.9 Type 2 diabetes mellitus without complications; E03.9 Hypothyroidism, unspecified; I25.10 Atherosclerotic heart disease of native coronary artery without angina pectoris; E78.5 Hyperlipidemia, unspecified; Z85.118 Personal history of other malignant neoplasm of bronchus and lung; Z85.3 Personal history of malignant neoplasm of breast; Z90.12 Acquired absence of left breast and nipple; Z90.710 Acquired absence of both cervix and uterus; Z90.89 Acquired absence of other organs; Z98.890 Other specified postprocedural states; Z91.011 Allergy to milk products; Z87.891 Personal history of nicotine dependence; Z79.82 Long term (current) use of aspirin; Z79.899 Other long term (current) drug therapy
CPT/HCPCS: 0241U; 36415; 36556; 36600; 51702; 71045; 74177; 80048; 80053; 81001; 82803; 82947; 83605; 84484; 85025; 85027; 87040; 87077; 87086; 87186; 87507; 93005; 93010; 93306; 96365-59; 96366-59; 96375; 96375-59; 99285-25; A9270; C1751; J0692; J0696; J1644; J1815; J2060; J7030; J7060; Q9967

== ENCOUNTER 2023-09-15 04:48 | Emergency (ER) | payer MEDICARE, OTHER ==
[~2023-09-15] VITALS: Ht 162.6 cm; Wt 104.3 kg
[~2023-09-15 04:48] MED LIST changes: +AMOCLA875 PO; +Flonase 0.05% N16 GM; +GLIP5 PO; +METF500C PO
[2023-09-15 06:17] LABS: Influenza A, PCR NEGATIVE (NEGATIVE); Influenza B, PCR NEGATIVE (NEGATIVE); Resp Syncytial Virus, PCR NEGATIVE (NEGATIVE)
[2023-09-15 06:39] LABS: Source, Urine Clean Catch
[2023-09-15 06:43] LABS: Appearance, Urine Hazy (Clear); Bilirubin, Urine Neg (Neg); Blood, Urine 2+ (Neg); Glucose Qualitative, Urine Neg (Neg); Ketones, Urine Neg (Neg); Leukocyte Esterase, Urine 3+ (Neg); Nitrite, Urine Neg (Neg); Protein, Urine 2+ (Neg); Urobilinogen, Urine NORM (Normal)
[2023-09-15 06:49] LABS: Color, Urine Pale Yellow (P-Yellow)
[2023-09-15 06:51] LABS: Bacteria Few /hpf; Squamous Epithelial Cells Not Seen /hpf (Few); White Blood Cells, Urine 50-100 /hpf (0-5)
[2023-09-15 07:15] LABS: SARS-Cov-2 (COVID-19) PCR, MMC POSITIVE (NEGATIVE)
[2023-09-15] MEDS ORDERED: PAXLOVID 150-11 EACH PO (07:30)
[2023-09-15] MEDS ORDERED: CEPH500 PO (07:30)
[2023-09-15 09:00] VITALS: BP 107/62
[2023-09-15] MEDS ORDERED: ONDA4ODT MM (09:43)
== END 2023-09-15 09:10 | disposition home or self-care (01) ==
LOC: ER 04:48
PROVIDERS: Emergency Medicine
DX: U07.1 COVID-19 (principal); N39.0 Urinary tract infection, site not specified; I11.0 Hypertensive heart disease with heart failure; I50.9 Heart failure, unspecified; I25.10 Atherosclerotic heart disease of native coronary artery without angina pectoris; E11.9 Type 2 diabetes mellitus without complications; E78.5 Hyperlipidemia, unspecified; E03.9 Hypothyroidism, unspecified; Z87.891 Personal history of nicotine dependence; Z79.82 Long term (current) use of aspirin; Z79.84 Long term (current) use of oral hypoglycemic drugs; Z79.890 Hormone replacement therapy; Z79.51 Long term (current) use of inhaled steroids; Z79.899 Other long term (current) drug therapy
CPT/HCPCS: 0241U; 81001; 87430; 96374; 99285-25; A9270; J2405

== ENCOUNTER 2024-05-21 09:36 | Inpatient (IN) | payer MEDICARE ==
[~2024-05-21] VITALS: Ht 152.4 cm; Wt 80.5 kg
[~2024-05-21 09:36] MED LIST changes: +CEPH500 PO; +ONDA4ODT MM; +PAXLOVID 150-11 EACH PO
[2024-05-21 10:08] LABS: Source, Urine Voided
[2024-05-21 10:12] LABS: Appearance, Urine Clear (Clear); Bilirubin, Urine Neg (Neg); Blood, Urine 2+ (Neg); Color, Urine Yellow (P-Yellow); Glucose Qualitative, Urine Neg (Neg); Ketones, Urine Neg (Neg); Leukocyte Esterase, Urine 2+ (Neg); Nitrite, Urine Neg (Neg); Protein, Urine 2+ (Neg); Specific Gravity, Urine 1.015 (1.003-1.022); Urobilinogen, Urine NORM (Normal)
[2024-05-21 10:14] LABS: BASOPHILS ABSOLUTE AUTO 0.01 K/mm3 (0.00-0.23); BASOPHILS PERCENT AUTO 0 % (0-2); EOSINOPHILS ABSOLUTE AUTO 0.05 K/mm3 (0.00-0.68); EOSINOPHILS PERCENT AUTO 1 % (0-6); Hematocrit 24.6 % (33.0-51.0); Hemoglobin 7.7 g/dL (11.5-16.0); IMMATURE GRAN ABSOLUTE AUTO 0.04 K/mm3 (0.00-0.10); IMMATURE GRAN PERCENT AUTO 0 % (0-1); LYMPHOCYTES ABSOLUTE AUTO 0.47 K/mm3 (0.84-5.20); LYMPHOCYTES PERCENT AUTO 5 % (21-46); MONOCYTES ABSOLUTE AUTO 0.32 K/mm3 (0.16-1.47); MONOCYTES PERCENT AUTO 4 % (4-13); Mean Corpuscular HGB 27.8 pg (26.0-34.0); Mean Corpuscular HGB Conc 31.3 g/dL (31.5-36.5); Mean Corpuscular Volume 89 fL (80-100); Mean Platelet Volume 10.8 fL (9.1-12.4); NEUTROPHILS ABSOLUTE AUTO 8.24 K/mm3 (1.96-9.15); NEUTROPHILS PERCENT AUTO 90 % (41-73); Platelet Count 202 K/mm3 (150-400); RDW Coefficient Variation 16.2 % (11.7-14.2); RDW Standard Deviation 53.1 fL (35.1-46.3); Red Blood Cell Count 2.77 M/mm3 (3.80-5.20); White Blood Cell Count 9.13 K/mm3 (4.00-11.30)
[2024-05-21] MEDS ORDERED: NS 1,000 ML IV SCH (10:15)
[2024-05-21 10:22] LABS: Bacteria Many /hpf; Red Blood Cells, Urine 0-2 /hpf (0-2); Squamous Epithelial Cells Rare /hpf (Few); Yeast/Fungi Urine Rare /hpf
[2024-05-21 10:36] LABS: Albumin, Blood 2.6 g/dL (3.4-5.0); Albumin/Globulin Ratio 0.4 (0.8-1.8); Bilirubin, Total 0.5 mg/dL (0.1-1.0); Bun/Creatinine Ratio 15.4 (12.0-20.0); Calcium, Blood 9.2 mg/dL (8.5-10.1); Creatinine, Blood 1.88 mg/dL (0.40-1.00); Globulin, Blood 5.8 g/dL (2.2-4.0); Magnesium, Blood 1.4 mg/dL (1.6-2.4); Potassium, Blood 4.6 mmol/L (3.5-5.5); Total Protein, Blood 8.4 g/dL (6.4-8.2)
[2024-05-21 10:48] LABS: Influenza A, PCR NEGATIVE (NEGATIVE); Influenza B, PCR NEGATIVE (NEGATIVE); Resp Syncytial Virus, PCR NEGATIVE (NEGATIVE); SARS-Cov-2 (COVID-19) PCR, MMC NEGATIVE (NEGATIVE)
[2024-05-21] MEDS ORDERED: CefTRIAXone Sodium 1,000 MG in NS 50 ML IV ONE (11:00)
[2024-05-21] MEDS ORDERED: Magnesium Sulf 2 GM/Water 50ML 50 ML IV ONE (11:00)
[2024-05-21 14:52] LABS: International Normalized Ratio 1.04; Prothrombin Time Results 11.1 Sec (9.7-11.5)
[2024-05-21] MEDS ORDERED: Acetaminophen 500 MG Tab PO PRN (16:35)
[2024-05-21] MEDS ORDERED: Polyethylene Glycol 3350 17 gm PO PRN (16:35)
[2024-05-21] MEDS ORDERED: NS 500 ML IV ONE ×2 (16:55→16:58)
[2024-05-21] MEDS ORDERED: Midazolam HCl 1MG / ML 2ML Vial ONE (17:34)
[2024-05-21] MEDS ORDERED: FentaNYL Citrate 50 MCG/ML 2 ML Injection ONE (17:35)
[2024-05-21 18:25] VITALS: BP 128/69
--- NOTE | 2024-05-21 19:27 | NUR ---
Pt admited to floor at 1805, after placement of L nephostomy tube, C/D/I, draing bloodly purlent drainage. VSS, A-Ox4 denies SOB, ambulates with SB assist and walker, on RA. Pt oriented to room, call denise in hand, bed in lowest position.
[2024-05-21 20:02] VITALS: BP 125/70
[2024-05-21] MEDS ORDERED: Docusate Sodium/Senna 1 Tab PO SCH (21:00)
[2024-05-21] MEDS ORDERED: Lactobacil 2-S.Thermo-Bifido 1 1 Cap PO SCH (21:00)
[2024-05-22 02:55] VITALS: BP 96/58
[2024-05-22 06:15] LABS: Hematocrit 21.2 % (33.0-51.0); Hemoglobin 6.7 g/dL (11.5-16.0); Mean Corpuscular HGB 27.3 pg (26.0-34.0); Mean Corpuscular HGB Conc 31.6 g/dL (31.5-36.5); Mean Corpuscular Volume 87 fL (80-100); Mean Platelet Volume 11.3 fL (9.1-12.4); Platelet Count 159 K/mm3 (150-400); RDW Coefficient Variation 16.7 % (11.7-14.2); RDW Standard Deviation 52.6 fL (35.1-46.3); Red Blood Cell Count 2.45 M/mm3 (3.80-5.20); White Blood Cell Count 13.81 K/mm3 (4.00-11.30)
--- NOTE | 2024-05-22 06:24 | NUR ---
SHIFT SUMMARY: NO ACUTE EVENTS. FELT FEBRILE TO TOUCH AT START OF SHIFT BUT TEMP READING WAS 99.8. DECLINED OFFERED TYLENOL. DENIED PAIN. GETTING UP TO BSC WITH 1PERSON ASSIST; USES WALKER AT HOME, GAIT IS WEAK AT THIS TIME. LEFT NEPHROSTOMY DRAINED 100 ML THIS SHIFT, MOSTLY BLOODY, AND DRESSING IS CD&I. THIS AUTHOR GAVE UPDATE TO DAUGHTER BY PHONE.
[2024-05-22 06:43] LABS: Albumin, Blood 2.1 g/dL (3.4-5.0); Anion Gap 10 mmol/L (3-11); Blood Urea Nitrogen 35 mg/dL (8-24); Bun/Creatinine Ratio 14.6 (12.0-20.0); CO2, Blood 24 mmol/L (21-32); Calcium, Blood 8.5 mg/dL (8.5-10.1); Chloride, Blood 104 mmol/L (98-108); Creatinine, Blood 2.39 mg/dL (0.40-1.00); Glomerular Filtration Rate 19 (60-); Glucose, Blood 178 mg/dL (70-99); Magnesium, Blood 2.5 mg/dL (1.6-2.4); Phosphorus, Blood 4.5 mg/dL (2.5-4.9); Potassium, Blood 3.9 mmol/L (3.5-5.5); Sodium, Blood 134 mmol/L (136-145)
[2024-05-22 07:35] VITALS: BP 91/52
[2024-05-22 08:06] VITALS: BP 99/48
[2024-05-22] MEDS ORDERED: Iron Dextran 50 MG / ML 2ML Vial IV ONE (08:10)
[2024-05-22] MEDS ORDERED: CefTRIAXone Sodium 1,000 MG in NS 100 ML IV SCH (09:00)
[2024-05-22] MEDS ORDERED: Ferrous Sulfate 325 MG Tab PO SCH (09:00)
[2024-05-22] MEDS ORDERED: Iron Dextran 975 MG in NS 250 ML IV ONE (09:30)
[2024-05-22 15:38] VITALS: BP 114/58
[2024-05-22] MEDS ORDERED: Carvedilol 6.25 MG Tab PO SCH (17:00)
--- NOTE | 2024-05-22 19:43 | NUR ---
VSS, denies any pain, denies SOB, ambulates with SB assist to bedside commode, A-Ox4 with IONE and slight interminent confusion, on RA. Lungs clear, heart regular, bowel sound normative, incontent at times of frequent loose stool though out shift, pt given IV iron for low H of 6.7, tolerated well. Pt can make needs known, call denise in hand, bed in lowest position, bed alarm on at all times.
[2024-05-22 19:48] VITALS: BP 109/53
[2024-05-22] MEDS ORDERED: Loperamide HCl 2 MG Cap PO PRN (21:20)
[2024-05-22] MEDS ORDERED: Loperamide HCl 2 MG Cap PO ONE (21:20)
[2024-05-23 03:54] VITALS: BP 123/61
[2024-05-23 05:05] LABS: Hematocrit 20.5 % (33.0-51.0); Hemoglobin 6.4 g/dL (11.5-16.0); Mean Corpuscular HGB 27.2 pg (26.0-34.0); Mean Corpuscular HGB Conc 31.2 g/dL (31.5-36.5); Mean Corpuscular Volume 87 fL (80-100); Mean Platelet Volume 11.2 fL (9.1-12.4); Platelet Count 142 K/mm3 (150-400); RDW Coefficient Variation 16.4 % (11.7-14.2); RDW Standard Deviation 51.8 fL (35.1-46.3); Red Blood Cell Count 2.35 M/mm3 (3.80-5.20); White Blood Cell Count 9.34 K/mm3 (4.00-11.30)
--- NOTE | 2024-05-23 05:07 | NUR ---
SHIFT SUMMARY: [place] IS A&OX4, [place]. VSS, NO ACUTE EVENTS OVERNIGHT. LEFT NEPHROSTOMY TUBE PATENT, DRAINING SANGEINOUS FLUID. PT HAS HAD GOOD URINE OUTPUT THIS SHIFT, C/O DIARRHEA FOR WHICH HOSPITALIST WAS CONTACTED, PLEASE SEE MAR. PT REPORTS SHE HAS HAD DIARRHEA OFF AND ON (SHE THINKS IT MAY BE RELATED TO FOOD SUCH LETTUCE) SINCE BEING DIAGNOSED WITH SEPSIS. PULL-UPS IN PLACE, PT WITH SOME MIXED INCONTINENCE. SHE IS TOLERATING PO INTAKE WELL, TAKES PILLS WHOLE WITH WATER, AND IS A STANDBY ASSIST TO THE BSC. BED ALARM ON FOR SAFETY, PT HAS USED THE CALL LIGHT OFF AND ON THIS SHIFT. SHE IS LYING IN BED WITH THE CALL LIGHT IN REACH. WILL GIVE REPORT TO DAY SHIFT RN.
[2024-05-23 05:36] LABS: Albumin, Blood 2.1 g/dL (3.4-5.0); Anion Gap 11 mmol/L (3-11); Blood Urea Nitrogen 40 mg/dL (8-24); Bun/Creatinine Ratio 17.5 (12.0-20.0); CO2, Blood 25 mmol/L (21-32); Calcium, Blood 8.5 mg/dL (8.5-10.1); Chloride, Blood 104 mmol/L (98-108); Creatinine, Blood 2.29 mg/dL (0.40-1.00); Glomerular Filtration Rate 20 (60-); Glucose, Blood 120 mg/dL (70-99); Phosphorus, Blood 3.2 mg/dL (2.5-4.9); Potassium, Blood 3.8 mmol/L (3.5-5.5); Sodium, Blood 136 mmol/L (136-145)
[2024-05-23] MEDS ORDERED: Levothyroxine Sodium 0.1 MG Tab PO SCH (06:00)
[2024-05-23 07:46] VITALS: BP 122/59
[2024-05-23] MEDS ORDERED: Furosemide 20 MG Tab PO SCH (09:00)
[2024-05-23] MEDS ORDERED: Fluticasone 0.05% Nasal Spray SCH (09:00)
[2024-05-23] MEDS ORDERED: NS 250 ML IV PRN (09:30)
[2024-05-23 09:32] LABS: Percent Saturation 121.9 % (15.0-50.0)
[2024-05-23] MEDS ORDERED: Ferrous Sulfate 325 MG Tab PO SCH (10:00)
[2024-05-23 17:25] VITALS: BP 110/52
--- NOTE | 2024-05-23 20:05 | NUR ---
SHIFT SUMMARY- PT IN BED, CALL LIGHT IN REACH NO S&S OF DISTRESS NOTED. BEDSIDE REPORT COMPLETED WITH NIGHT RN. PT HAS A LEFT NEPHROSTOMY IN PLACE DRAINING A SMALL AMOUNT OF DARK BLOODY URINE. PT HAS BEEN INDEPENDENT TO THE BSC T/O THE DAY W/O DIFFICULTY.
[2024-05-23 20:34] VITALS: BP 92/53
[2024-05-24 02:31] VITALS: BP 118/63
--- NOTE | 2024-05-24 04:17 | NUR ---
PT REQUESTED THYROID MEDICATION EARLY; ADMINISTERED AT 0417 PER PT REQUEST.
[2024-05-24 06:09] LABS: Hematocrit 21.7 % (33.0-51.0); Hemoglobin 6.5 g/dL (11.5-16.0); Mean Corpuscular HGB 26.6 pg (26.0-34.0); Mean Corpuscular Volume 89 fL (80-100); Mean Platelet Volume 11.5 fL (9.1-12.4); Platelet Count 163 K/mm3 (150-400); RDW Coefficient Variation 16.5 % (11.7-14.2); RDW Standard Deviation 53.6 fL (35.1-46.3); Red Blood Cell Count 2.44 M/mm3 (3.80-5.20); White Blood Cell Count 7.82 K/mm3 (4.00-11.30)
[2024-05-24 06:32] LABS: Albumin, Blood 2.1 g/dL (3.4-5.0); Anion Gap 9 mmol/L (3-11); Blood Urea Nitrogen 36 mg/dL (8-24); Bun/Creatinine Ratio 16.5 (12.0-20.0); CO2, Blood 26 mmol/L (21-32); Calcium, Blood 8.6 mg/dL (8.5-10.1); Chloride, Blood 107 mmol/L (98-108); Creatinine, Blood 2.18 mg/dL (0.40-1.00); Glomerular Filtration Rate 21 (60-); Glucose, Blood 130 mg/dL (70-99); Phosphorus, Blood 2.9 mg/dL (2.5-4.9); Potassium, Blood 3.9 mmol/L (3.5-5.5); Sodium, Blood 138 mmol/L (136-145)
--- NOTE | 2024-05-24 06:42 | NUR ---
LOAN REVIEWER SUMMARY PT A/OX4. PLEASANT AND COOPERATIVE. NO ACUTE CHAGNES. PT NEPHROSTOMY DRAINING 20MLS; COLOR IS RED-BROWN; NOT CLOTS OBSERVED. PT CONTINUES TO DENY PAIN. PT AFFIRMS HER DECISION TO NOT ACCEPT BLOOD PRODUCTS DUE TO RESTORATION PREFERENCE. PT IS ABLE TO MAKE NEEDS KNOWN. CALL LIGHT IN REACH.
[2024-05-24 07:28] VITALS: BP 126/76
[2024-05-24] MEDS ORDERED: FERSU300 PO (13:13)
[2024-05-24 16:26] VITALS: BP 115/60
[2024-05-24 19:15] VITALS: BP 94/64
--- NOTE | 2024-05-24 19:44 | NUR ---
SHIFT SUMMARY: PT IS A/O X 4 SBA PLEASANT AND COOPERATIVE. PT DID NOT REPORT ANY PAIN TODAY. PT DENIES EPISODES OF DIARRHEA TODAY. NO ACUTE CONCERNS. SPOKE TO DR. JACK TODAY. NO NEW ORDERS AT THIS TIME. DRAINAGE FROM L NEPHROSTOMY RED COLORED WITH MINIMAL OUTPUT.
[2024-05-25 02:44] VITALS: BP 119/80
--- NOTE | 2024-05-25 06:06 | NUR ---
SHIFT SUMMARY: A7OX4 CALM COOPERATIVE ABLE TO MAKE NEEDS KNOWN, [place] MEDIATED W/ AUDITORY DEVICE AND SPEAKING LOW AND SLOW. RA. NO TELE DENIES CP/PRESSURE. SBA W/ FWW PT IND IN ROOM TO BSC FOR ELIMINATION. BM 05/22. TYLENOL PER PT REQUEST ADMIN FOR MILD PAIN/ TINGLING IN BLE. PT REQUESTING EDUCATIO BUD AM FROM MD ON GABAPENTIN AND DIABETIC NEUROPATHY. TOLERATING A CARB CONSIST DIET, ACHS SUGAR CHECKS NOT REQUIRING INSULIN COVERAGE. SAFETY MEASURES MONITORED.
[2024-05-25 06:32] LABS: Hematocrit 22.2 % (33.0-51.0); Hemoglobin 6.8 g/dL (11.5-16.0)
[2024-05-25 07:02] LABS: Bun/Creatinine Ratio 15.8 (12.0-20.0); Calcium, Blood 8.9 mg/dL (8.5-10.1); Creatinine, Blood 2.02 mg/dL (0.40-1.00); Free Thyroxine 0.92 ng/dL (0.70-1.60); Potassium, Blood 4.1 mmol/L (3.5-5.5); Triiodothyronine, Free 0.94 pg/mL (2.18-3.98)
[2024-05-25 07:49] VITALS: BP 118/69
[2024-05-25] MEDS ORDERED: NS 1,000 ML IV SCH (08:20)
--- NOTE | 2024-05-25 10:45 | NUR ---
DR DE LA CRUZ TO BEDSIDE. REQUESTED CLARIFICATION ON FLUIDS AND LASIX. PER DR DE LA CRUZ, DO NOT GIVE 2L OR FUROSEMIDE; ADMINISTER 500mL BOLUS DUE TO CREATININE.
[2024-05-25 15:25] VITALS: BP 104/56
[2024-05-25 19:13] VITALS: BP 130/63
--- NOTE | 2024-05-25 19:59 | NUR ---
DAY SHIFT SUMMARY: A&Ox4. PLEASANT AND COOPERATIVE WITH CARE. CALLS APPROPRIATELY AND IS ABLE TO ADVOCATE NEEDS EFFECTIVELY. SEVERAL VISITORS IN AND OUT TODAY, MOST FROM ORTHODOX. SEVERAL PHONE CALLS, WELL. HARD OF HEARING AND UTILIZES OTC HEARING ASSISTANCE DEVICE. INDEPENDENT/SBA TO BSC. 1700 CARVEDILOL HELD DUE TO LOW BP. RECEIVED EOP THIS MORNING; CONTINUES TO REFUSE BLOOD PRODUCTS, DESPIDE LOW HGB. NS ADMINISTERED TODAY. NO ACUTE CONCERNS. BED IN LOWEST POSITION. CALL LIGHT WITHIN REACH. REPORT TO ONCOMING RN.
[2024-05-26 03:06] VITALS: BP 114/56
--- NOTE | 2024-05-26 05:48 | NUR ---
REFRIGERATION MECHANIC HELPER PATIENT IS A&OX4, ON ROOM AIR, CALLS APPROPRIATELY BUT INDEPENDENT IN ROOM. PATIENT HAD A LEFT KIDNEY STENT PLACE TWO DAYS AGO, HAS A LEFT NEPHRO TUBE THAT DRAIN ABOUT 4OML LASTNIGHT. PATIENT COMPLAIN OF PAIN AND PRN PAIN MEDS WERE GIVEN. POSSIBLE D/C DURING THE DAY SHIFT.
[2024-05-26 07:52] VITALS: BP 122/69
[2024-05-26 10:04] LABS: Hematocrit 25.9 % (33.0-51.0); Hemoglobin 7.5 g/dL (11.5-16.0)
[2024-05-26 11:34] LABS: Bun/Creatinine Ratio 13.9 (12.0-20.0); Calcium, Blood 9.3 mg/dL (8.5-10.1); Creatinine, Blood 1.94 mg/dL (0.40-1.00)
[2024-05-26 15:19] VITALS: BP 117/64
[2024-05-26] MEDS ORDERED: Darbepoetin Alfa In Albumn Sol 40 MCG/0.4 ML SC ONE (16:00)
[2024-05-26 19:20] VITALS: BP 115/57
--- NOTE | 2024-05-26 20:08 | NUR ---
PATIENT ALERT AND ORIENTED TIMES FOUR. INDEPENDENT, RIGHT NEPRODRAIN, SLIGHT SANGUINEOUS, RENAL INFECTION, KIDNEY STONES. ANTIBIOTIC TREATMENT. VSS. RA, REFUSED BLOOD TRANSFUSION, GIVEN ERYTHROPOIENTIN DERIVATIVES. NO PAIN REPORTED.
[2024-05-27 05:45] LABS: Hemoglobin 7.7 g/dL (11.5-16.0)
[2024-05-27 07:46] VITALS: BP 136/73
[2024-05-27] MEDS ORDERED: VISBIOME 112.51 EACH PO (14:57)
[2024-05-27] MEDS ORDERED: LOPE2C PO (14:59)
[2024-05-27] MEDS ORDERED: CEPH500 PO (14:59)
--- NOTE | 2024-05-27 15:28 | NUR ---
DISCHARGE NOTE PATIENT A/OX4, AMBULATES IN ROOM INDEPENDENTLY. NEPHROSTOMY DRAINED 50ML OF [place]AN[place] COLORED MUCOUS TEXTURED FLUID. DISCHARGE INSTRUCTIONS GIVEN TO PATIENT AND PATIENT'S DAUGHTER, NO QUESTIONS AT TIME OF DISCHARGE. ALL BELONGINGS SENT WITH PATIENT AND DAUGHTER. REFERRALS TO UROLOGY, DR. BARRAZA, AND PRIMARY CARE PROVIDED AND UNDERSTOOD. NO OTHER CONCERNS AT TIME OF DISCHARGE. PATIENT ASSISTED VIA WHEELCHAIR TO FAMILY VEHICLE.
== END 2024-05-27 15:30 | disposition home health service (06) | DRG 872 ==
LOC: ER 09:36 → MEDS 16:31
PROVIDERS: Family Medicine; Student in an Organized Health Care Education/Training Program; ADMIT Internal Medicine
PROC: 30233N1 Transfusion of Nonautologous Red Blood Cells into Peripheral Vein, Percutaneous Approach (ICD-10-PCS; principal; 2024-05-21)
PROC: 0T9130Z Drainage of Left Kidney with Drainage Device, Percutaneous Approach (ICD-10-PCS; 2024-05-21)
PROC: BT121ZZ Fluoroscopy of Left Kidney using Low Osmolar Contrast (ICD-10-PCS; 2024-05-21)
PROC: BT42ZZZ Ultrasonography of Left Kidney (ICD-10-PCS; 2024-05-21)
PROC: 3E03329 Introduction of Other Anti-infective into Peripheral Vein, Percutaneous Approach (ICD-10-PCS; 2024-05-21)
DX: A41.51 Sepsis due to Escherichia coli [E. coli] (principal); N17.9 Acute kidney failure, unspecified; I50.22 Chronic systolic (congestive) heart failure; N13.6 Pyonephrosis; I13.0 Hypertensive heart and chronic kidney disease with heart failure and stage 1 through stage 4 chronic kidney disease, or unspecified chronic kidney disease; Z66 Do not resuscitate; R65.20 Severe sepsis without septic shock; N18.32 Chronic kidney disease, stage 3b; N20.0 Calculus of kidney; D63.1 Anemia in chronic kidney disease; E78.5 Hyperlipidemia, unspecified; I25.10 Atherosclerotic heart disease of native coronary artery without angina pectoris; E03.9 Hypothyroidism, unspecified; E11.22 Type 2 diabetes mellitus with diabetic chronic kidney disease; Z91.011 Allergy to milk products; Z79.82 Long term (current) use of aspirin; Z79.84 Long term (current) use of oral hypoglycemic drugs; Z79.890 Hormone replacement therapy; Z79.01 Long term (current) use of anticoagulants; Z79.899 Other long term (current) drug therapy; Z85.3 Personal history of malignant neoplasm of breast; Z98.890 Other specified postprocedural states; Z90.6 Acquired absence of other parts of urinary tract; Z90.710 Acquired absence of both cervix and uterus; Z96.641 Presence of right artificial hip joint; Z87.891 Personal history of nicotine dependence; Z90.49 Acquired absence of other specified parts of digestive tract; Z90.12 Acquired absence of left breast and nipple
CPT/HCPCS: 0241U; 36415; 50432; 71045; 74177; 76937; 80048; 80053; 80069; 81001; 82728; 82947; 83540; 83550; 83735; 84439; 84443; 84481; 85014; 85018; 85025; 85027; 85610; 85730; 86850; 86900; 86901; 86923; 87077; 87086; 87186; 93005; 93010; 94760; 96361; 96365-59; 96367; 99152; 99153; 99285-25; A9270; C1729; C1769; J0696; J0881; J1750; J2250; J3010; J3475; J7030; J7040; J7050; Q9967

== ENCOUNTER → 2024-06-29 | Outpatient (CLI) | payer MEDICARE ==
[~2024-06-29] MED LIST changes: +FERSU300 PO; +LOPE2C PO; +VISBIOME 112.51 EACH PO
[2024-06-29 13:37] LABS: Source, Urine Urostomy Bag
[2024-06-29 15:30] LABS: Appearance, Urine Turbid (Clear); Bilirubin, Urine Neg (Neg); Blood, Urine 5+ (Neg); Color, Urine Yellow (P-Yellow); Glucose Qualitative, Urine Neg (Neg); Ketones, Urine Neg (Neg); Leukocyte Esterase, Urine 3+ (Neg); Nitrite, Urine Neg (Neg); Protein, Urine 4+ (Neg); Urobilinogen, Urine NORM (Normal)
[2024-06-29 15:57] LABS: Red Blood Cells, Urine TNTC /hpf (0-2); White Blood Cells, Urine TNTC /hpf (0-5)
[2024-06-29 15:58] LABS: Bacteria Many /hpf; Squamous Epithelial Cells Not Seen /hpf (Few)
== END ==
LOC: LAB 13:34 → LAB SHORT 13:34
PROVIDERS: Internal Medicine Hematology & Oncology
DX: R30.0 Dysuria (principal)
CPT/HCPCS: 81001; 87077; 87086; 87186

== ENCOUNTER → 2024-07-28 | Outpatient (CLI) | payer MEDICARE ==
[2024-07-29 18:54] LABS: BASOPHILS ABSOLUTE AUTO 0.04 K/mm3 (0.00-0.23); BASOPHILS PERCENT AUTO 1 % (0-2); EOSINOPHILS ABSOLUTE AUTO 0.13 K/mm3 (0.00-0.68); EOSINOPHILS PERCENT AUTO 2 % (0-6); Hematocrit 33.8 % (33.0-51.0); Hemoglobin 10.8 g/dL (11.5-16.0); IMMATURE GRAN ABSOLUTE AUTO 0.04 K/mm3 (0.00-0.10); IMMATURE GRAN PERCENT AUTO 1 % (0-1); LYMPHOCYTES ABSOLUTE AUTO 1.38 K/mm3 (0.84-5.20); LYMPHOCYTES PERCENT AUTO 25 % (21-46); MONOCYTES ABSOLUTE AUTO 0.47 K/mm3 (0.16-1.47); MONOCYTES PERCENT AUTO 9 % (4-13); Mean Corpuscular HGB 30.3 pg (26.0-34.0); Mean Corpuscular Volume 95 fL (80-100); NEUTROPHILS ABSOLUTE AUTO 3.44 K/mm3 (1.96-9.15); NEUTROPHILS PERCENT AUTO 63 % (41-73); Platelet Count 135 K/mm3 (150-400); RDW Coefficient Variation 16.2 % (11.7-14.2); RDW Standard Deviation 57.1 fL (35.1-46.3); Red Blood Cell Count 3.56 M/mm3 (3.80-5.20)
== END ==
LOC: LAB SHORT 16:44 → LAB 16:44
PROVIDERS: Internal Medicine Hematology & Oncology
DX: D63.1 Anemia in chronic kidney disease (principal)
CPT/HCPCS: 85025

== ENCOUNTER → 2024-09-02 | Outpatient (CLI) | payer MEDICARE | LOC: LAB 15:43 → LAB SHORT 15:43 → LAB FUT 09-01 09:30 | DX: N13.30 Unspecified hydronephrosis (principal) | CPT/HCPCS: 81050 ==